=== PATIENT | male | born 1965 | race Caucasian/White ===

== ENCOUNTER 2018-06-23 09:56 | Emergency (ER) | payer BC ==
--- NOTE | 2018-06-23 10:26 | Emergency Department Record ---
History of Present Illness - General Chief Complaint: Dizziness Stated Complaint: LIGHTED HEAD/CHEST DISCOMFORT Time Seen by Provider: 06/23/18 10:25 Source: Patient Mode of Arrival: Ambulatory Limitations: No limitations - History of Present Illness Initial Comments: The patient is here due to an episode of chest discomfort which began about an hour and a half ago. 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 It was associated with nausea, sweating , mild CONSUELO, and lightheadedness. The symptoms then got better after about 20 minutes and then slowly resolved over the next hour. He has no hx of any cardiac issues and no hx of RODRIGUEZ or CP with exertion. MD Complaint: Other Onset/Timin -: Minutes(s) Timing: Sudden onset Description: Lightheadedness History of Same: No History of Trauma: No Improves With: Nothing Worsens With: Nothing - Akbar Coma Scale Eye Response: (4) Open spontaneously Motor Response: (6) Obeys commands Verbal Response: (5) Oriented [place] Total: 15 - Related Data Allergies Allergy/AdvReac Type Severity Reaction Status Date / Time erythromycin base Allergy Severe NAUSEA AND Verified 06/23/18 10:13 VOMITING Penicillins Allergy Unknown PT UNSURE Verified 06/23/18 10:13 OF REACTION Travel Screening - Travel/Exposure Within Last 30 Days Have you traveled within the last 30 days?: No - Travel/Exposure Within Last Year Have you traveled outside the [place] in the last year?: No - Additonal Travel Details Have you been exposed to anyone with a communicable illness?: No - Travel Symptoms Symptom Screening: None Review of Systems Constitutional: Denies: Chills, Fever Eyes: Denies: Eye discharge ENT: Denies: Congestion Respiratory: Denies: Cough, Dyspnea Cardiovascular: Reports: Chest pain, Dyspnea on exertion Endocrine: Denies: Fatigue Gastrointestinal: Denies: Diarrhea, Vomiting Genitourinary: Denies: Dysuria Musculoskeletal: Denies: Arthralgia Skin: Denies: Bruising Past Medical History - SOCIAL HISTORY Smoking Status: Never smoker Alcohol Use: Occasional Drug Use: None - RESPIRATORY Hx Respiratory Disorders: Yes Hx of CPAP: Yes - CARDIOVASCULAR Hx Cardio Disorders: No - NEURO Hx Neuro Disorders: No - GI Hx GI Disorders: No - Hx Genitourinary Disorders: No - ENDOCRINE Hx Endocrine Disorders: No - MUSCULOSKELETAL Hx Musculoskeletal Disorders: Yes Hx Fibromyalgia: Yes - PSYCH Hx Psych Problems: No - HEMATOLOGY/ONCOLOGY Hx Hematology/Oncology Disorders: No Family Medical History Any Significant Family History?: Yes Hx Cancer: Mother Hx Diabetes: Mother Hx Heart Disease: Father Hx HTN: Father Hx Resp Disorders: Mother Physical Exam - General General Appearance: Alert, Oriented x3, Cooperative, No acute distress - Head Head exam: Atraumatic, Normocephalic, Normal inspection - Eye Eye exam: Normal appearance, PERRL, EOMI - ENT Throat exam: Normal inspection. negative: Tonsillar erythema, Tonsillar exudate - Neck Neck exam: Normal inspection, Full ROM. negative: Tenderness - Respiratory Respiratory exam: Normal lung sounds bilaterally. negative: Decreased breath sounds, Respiratory distress - Cardiovascular Cardiovascular Exam: Regular rate, Normal rhythm, Normal heart sounds, Other ( mildly decreased heart sounds.) - GI/Abdominal GI/Abdominal exam: Soft, Normal bowel sounds. negative: Tenderness - Extremities Extremities exam: Normal inspection, Full ROM, Normal capillary refill. negative: Tenderness - Neurological Neurological exam: Alert. negative: Motor sensory deficit Course Vital Signs 06/23/18 10:14 Temperature 97.5 F L Pulse Rate 58 L Respiratory 18 Rate Blood Pressure 133/107 Pulse Ox 97 - Reevaluation(s) Reevaluation #1: The patient is doing very well at this time. His pain has resolved and he is resting comfortably. I did discuss the issues with the patient and did recommend hospital admission. Due to the fact we are not able to perform that test here I did recommend transfer to [facility] and the patient did agree. I then did discuss the case with Dr. Alcala and he does accept the patient in transfer. 06/23/18 11:42 Medical Decision Making - Data Complexity MDM Data: Labs Ordered and/or Reviewed, X-Ray Ordered and/or Reviewed, EKG Ordered and/or Reviewed - Lab Data Result diagrams: 06/23/18 10:35 06/23/18 10:35 - EKG Data -: EKG Interpreted by Me EKG: No Acute Changes - Radiology Data Radiology results: Report reviewed (CXR: Neg.) Disposition Disposition: Transfer Clinical Impression: Chest pain Qualifiers: Chest pain type: unspecified Qualified Code(s): R07.9 - Chest pain, unspecified Disposition: Home, Self-Care Transfer To: [facility] Reason For Transfer: Cardiology Accepting Physician: Fredrick Time Discussed w/Accepting Physician: 11:43 Condition: (2) Stable Forms: Patient Portal Access Time of Disposition: 11:44 Quality - Quality Measures Quality Measures: N/A - Blood Pressure Screening View Details: Yes Does Patient Have Any of the Following: No Blood Pressure Classification: Hypertensive Reading Systolic Measurement: 133 Diastolic Measurement: 107 Screening for High Blood Pressure: < First Hypertensive BP, F/U Documented > [ [id number]] First Hypertensive Follow-up Interventions: Referral to alternative/primary care provider.
[2018-06-23] MEDS ORDERED: ASPIRIN 325 MG TABLET PO ONE (10:30)
[2018-06-23 10:55] LABS: BASO % 0.8 % (0-6); EOS % 2.9 % (0-6); GRAN % 49.3 % (47-80); HEMATOCRIT 46.9 % (42.0-52.0); HEMOGLOBIN 15.9 gm/dl (14.0-18.0); LYMPH % 34.6 % (16-45); MEAN CELL VOLUME 88.5 fl (81-97); MEAN CORPUSCULAR HGB CONC 33.9 g/dl (32-36); MEAN PLATELET VOLUME 11.3 fl (7.4-10.4); MONO % 12.4 % (0-9); PLATELET COUNT 252 K/uL (130-400); RED CELL DISTRIBUTION WIDTH 13.2 % (11.5-14.5); WHITE BLOOD COUNT W/O DIFF 5.2 K/uL (4.2-12.2)
[2018-06-23 11:06] LABS: BLOOD UREA NITROGEN 19 mg/dL (6-20); CREATININE 1.1 mg/dL (0.7-1.2); EST GLOMERULAR FILTRATION RATE > 60 mL/min
[2018-06-23 11:09] LABS: GLUCOSE,RANDOM 103 mg/dL (74-109); PARTIAL THROMBOPLASTIN TIME 29.4 SECONDS (24.5-39.1); PROTHROMBIN TIME (PATIENT) 9.9 SECONDS (9.5-12.1)
[2018-06-23 11:12] LABS: CREATINE PHOSPHOKINASE 180 U/L (39-308)
[2018-06-23 11:13] LABS: CKMB 2.7 ng/mL (<6.73)
--- NOTE | 2018-06-24 07:01 | RADIOLOGY REPORT ---
DATE: 06/23/2018. EXAM: PORTABLE CHEST. HISTORY: DIFFICULTY BREATHING. TECHNIQUE: Portable AP upright view of the chest was performed. FINDINGS: Heart size is normal. No pulmonary vascular congestion. No infiltrate or pleural effusion. The osseous structures are normal. IMPRESSION: NEGATIVE CHEST EXAMINATION. JOB NUMBER: [id number] MTDD
== END 2018-06-23 12:52 | disposition home or self-care (01) ==
LOC: ER 09:56
DX: R07.89 Other chest pain (principal); R06.00 Dyspnea, unspecified; R42 Dizziness and giddiness; R11.0 Nausea
CPT/HCPCS: 71045; 80048; 82550; 82553; 84484; 85025; 85610; 85730; 93005; 93010; 99285